=== PATIENT | female | born 1950 | race Caucasian/White ===

== ENCOUNTER 2017-03-17 11:00 | Emergency (ER) | payer OTHER ==
--- NOTE | 2017-03-17 11:04 | PDOC ---
Attending Attestation - Resident Resident Name: Shi Ann - ED Attending Attestation I have performed the following: I have examined & evaluated the patient, The case was reviewed & discussed with the resident, I agree w/resident's findings & plan - HPI HPI: 03/17/17 11:42 67 y/o female with hx of back issues in the past, presents to the ER with increasing back pain on the right lower back radiating down the right leg. Denies weakness or numbness. Went to the Urgent Care on Tuesday and given Flexeril and Naproxen, but this has not worked. No fever or chills. No recent fall or trauma, or lifting. Denies abdominal pain or recent procedures or incontinence. Patient states that the lower back hurts more with twisting. Pt states a UZA was done in the urgent care, but no x-ray. 03/17/17 11:48 - Physicial Exam PE: 03/17/17 11:44 VS stable HEENT uremarkable Heart: RRR w/o murmur Lungs CTA b/l, no wheezes, rhonchi or rales Abdomen: soft non tender +BS, no pulsatile mass noted Back: tenderness to right lower paravertebral muscles into the periformis area on palpation, no spinous process tenderness, decreased ROM EXT : neg C/C/E Neuro: strength 5+/5 b/l in LE, no focal deficits noted, neg SLR test b/l Discussed and agree with Resident Ann diagnosis Will give Valium and Percocet with x-ray 03/17/17 13:59 Pt is feeling better. Decadron 10 mg IV and Toradol 30 mg IV given Will increase Flexeril to 10 mg 3x/day as needed, Naproxen and Medrol dose pack Follow up with Orthopedics If worsen return to ER X-ray spine, lumbar : no fracture seen Patient and family in agreement with plan Risks and benefits explained to pt In agreement with Dr. Ann, resident - Medical Decision Making 03/17/17 14:01 A; Sciatica/lumbar strain right side P: Naproxen, Flexeril and Medrol dose pack Follow up with Orthopedics If no better return to ER No neurological deficits no sign of epidural abscess seen, vitals stable
[2017-03-17 11:05] VITALS: TEMP 98.4; BMI 27.1
[2017-03-17 11:09] VITALS: BP 122/74; PULSE 81
[2017-03-17] MEDS ORDERED: diazePAM 2 MG TABLET PO ONE (11:31)
--- NOTE | 2017-03-17 11:41 | PDOC ---
History of Present Illness - General Chief Complaint: Pain, Acute Stated Complaint: LOW BACK PAIN Time Seen by Provider: 03/17/17 11:04 History Source: Patient Exam Limitations: No Limitations - History of Present Illness Initial Comments: This is a 67 yo female with h/o sciatica (25 years ago), osteopenia (as of DEXA scan 3 years ago), total hysterectomy, appendectomy, and cholecystectomy who was driven here by her daughter for right lower back pain for the past 8 days. The pain began the night after having gone up and down stairs much more than she normally does, and it has fluctuated up to 10/10 since that time. It is dull , located in the right lower back and gluteal region, radiates down the front of the right thigh, is worsened by any movement or walking or bending forward, and is associated with left toe tingling. She was seen at Urgent Care 4 days ago and had a UA which was normal, and was prescribed Flexeril and naproxen which has been generally helping with her pain. It worsened this morning, however, and she called the advice RN who told her to come to the ED on an empty stomach and to not take her morning Flexeril/naproxen in case we wanted to administer a different medication. She denies any recent fever, chills, night sweats, change in weight or appetite, chest pain, shortness of breath, nausea, vomiting, diarrhea, constipation, abdominal pain, vaginal bleeding or discharge, pain on urination, blood in the urine, urinary or bowel incontinence or retention, dizziness/lightheadedness, difficulty balancing, numbness, focal weakness, headache, vision changes, midline back pain, or other symptoms. She denies h/o cancer or drug use. Past History - Travel Traveled outside of the country in the last 30 days: No - Past Medical History Allergies/Adverse Reactions: Allergies Allergy/AdvReac Type Severity Reaction Status Date / Time iodine Allergy Mild Verified 03/17/17 11:02 Home Medications: Ambulatory Orders Cyclobenzaprine HCl [Flexeril -] 5 mg PO TID PRN #20 tablet 03/17/17 Methylprednisolone [Medrol Dose Shilo] 4 mg PO ASDIR #21 tablet 03/17/17 GI Disorders: Yes (IBS,redundant colon hemorrhoids,h pylori) Hypercholesterolemia: Yes Comment:: osteopenia - Surgical History Abdominal Surgery: Yes Appendectomy: Yes (1981) Cholecystectomy: Yes (1997) Orthopedic Surgery: (S/p fracture left ankle 11/14) - Psycho/Social/Smoking Cessation Hx Anxiety: No Suicidal Ideation: No Smoking Status: No Smoking History: Never smoked Have you smoked in the past 12 months: No Number of Cigarettes Smoked Daily: 0 Hx Alcohol Use: No Drug/Substance Use Hx: No Substance Use Type: None Hx Substance Use Treatment: No Review of Systems - Review of Systems Able to Perform ROS?: Yes Constitutional: Yes: Weight Stable, Other (no night sweats). No: Chills, Fever , Loss of Appetite, Unexplained wgt Loss HEENTM: No: Recent change in vision, Nose Congestion, Throat Pain Respiratory: No: Cough, Shortness of Breath Cardiac (ROS): No: Chest Pain, Lightheadedness, Palpitations ABD/GI: Yes: Other (no abdominal pain, no bowel incontinence). No: Constipated , Diarrhea, Nausea, Vomiting : Yes: Other (no urinary retention). No: Burning, Dysuria, Discharge, Frequency, Hematuria, Incontinence Musculoskeletal: Yes: Back Pain (right low back). No: Neck Pain Integumentary: No: Bruising, Rash Neurological: Yes: Tingling (only in right toes). No: Headache, Numbness, Weakness, Unsteady Gait, Ataxia, Dizziness Endocrine: No: Unexplained Weight Gain, Unexplained Weight Loss *Physical Exam - Vital Signs Last Vital Signs Temp Pulse Resp BP Pulse Ox 98.4 F 81 17 122/74 100 03/17/17 11:01 03/17/17 11:01 03/17/17 11:01 03/17/17 11:01 03/17/17 11:01 - Physical Exam General Appearance: Yes: Nourished, Appropriately Dressed, Moderate Distress, Other (obviously uncomfortable but nontoxic-appearing, standing up straight for duration of interview and holding right lower back with right hand, ) HEENT: positive: EOMI, JARED, Normal Voice, Hearing Grossly Normal. negative: Scleral Icterus (R), Scleral Icterus (L), Nasal Congestion Neck: positive: Trachea midline, Supple. negative: Tender, Rigid Respiratory/Chest: positive: Lungs Clear, Normal Breath Sounds. negative: Respiratory Distress, Crackles, Rhonchi, Stridor, Wheezing Cardiovascular: positive: Regular Rhythm, Regular Rate. negative: Edema, Murmur Vascular Pulses: Dorsalis-Pedis (R): 2+, Doralis-Pedis (L): 2+ Gastrointestinal/Abdominal: positive: Normal Bowel Sounds, Soft. negative: Tender, Organomegaly, Pulsatile Mass, Guarding Musculoskeletal: positive: Normal Inspection, Other (no midline stepoffs, no back lesions or deformities). negative: CVA Tenderness, Vertebral Tenderness Extremity: positive: Normal Capillary Refill, Normal Inspection, Normal Range of Motion. negative: Tender, Cyanosis Integumentary: positive: Normal Color, Dry, Warm. 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 negative: EOM Palsy, Facial Droop, Sensory Deficit, Confused, Disoriented Deep Tendon Reflexes: Ankle (L): 2+, Ankle (R): 2+, Knee (L): 2+, Knee (R): 2+ ED Treatment Course - RADIOLOGY Radiology Studies Ordered: Category Date Time Status SPINE-LUMBAR ONLY [RAD] Stat Radiology 03/17/17 11:31 Ordered Radiograph Interpretation: L-spine x-ray without e/o acute fracture or bony deformity Medical Decision Making - Medical Decision Making 67 yo female with h/o sciatica (25 years ago) and osteopenia p/w right low back pain radiating down right thigh. Went up and down stairs prior to onset, no trauma, seen at and Rx Flexeril and naproxen with relief, worse today. No red flag symptoms for back pain, no neurological symptoms. DDX includes sciatica/piriformis syndrome, herniated lumbar disc, compression fracture, UTI/pyelo, muscle strain/sprain/spasm. Ordered are UA w/ cx, L-spine x-ray, pain control with 5 mg Valium and #1 Percocet PO. 03/17/17 13:03 Pt with incomplete relief of pain with Valium and Percocet. Ordered are Toradol 30 mg and Decadron 10 mg. L-spine x-ray without e/o bony abnormality. UA with trace blood and leukocytes but no other e/o UTI or other pathology. 03/17/17 14:50 Patient reports much improved pain after Toradol and Decadron. Her daughter helps make an orthopedics appointment for her for 03/24/17. The patient has 28 Flexeril left in her prescription and she has been taking only 1 every 12 hours. She is instructed to use #2 Flexeril every 8 hours instead. She has enough Flexeril for 14 doses or about 5 days. She does feel comfortable with discharge home with Rx for #20 more Flexeril and Medrol Dose Shilo. She is also instructed to continue taking naproxen as prescribed. She and her daughter are counseled regarding prescription plan and return precautions. She will follow up with her orthopedist or neurologist (requests contact info for Neuro). Or she will return to ED with any further emergency concerns. *DC/Admit/Observation/Transfer Diagnosis at time of Disposition: Back pain Qualifiers: Back pain location: low back pain Chronicity: acute Back pain laterality: right Sciatica presence: with sciatica Sciatica laterality: sciatica of right side Qualified Code(s): M54.41 - Lumbago with sciatica, right side - Discharge Dispostion Disposition: HOME Condition at time of disposition: Stable Admit: No - Prescriptions Prescriptions: Cyclobenzaprine HCl [Flexeril -] 5 mg PO TID PRN #20 tablet PRN Reason: Pain Methylprednisolone [Medrol Dose Shilo] 4 mg PO ASDIR #21 tablet - Referrals Referrals: Lexx Gibson MD [Primary Care Provider] - - Patient Instructions Printed Discharge Instructions: DI for Back Pain With Sciatica Additional Instructions: You were seen today for back pain with sciatica symptoms. We did a lumbar spine x-ray which was normal, and also did a urine analysis which was not concerning to us. We gave you Valium (a muscle relaxer) and Percocet to control the pain, which initially did not provide enough relief. We gave you a dose of decadron ( a steroid) and also some Toradol (an NSAID) which provided relief. Please follow up with your orthopedist on 03/24/17 as scheduled. We prescribed you 20 more Flexeril (cyclobenzaprine) pills to hold you over until your orthopedics appointment. We also prescribed you a Medrol Dose Shilo (which are steroid pills) . Please take 10 mg (two of the 5 mg pills) of Flexeril every 8 hours as needed for pain and muscle spasms. Please also take the Medrol Dose Shilo pills as prescribed on the prescription instructions. Please also continue taking the Naproxen once every 12 hours as you have been doing. Try not to stay in bed all day - don't overdo it, but try to keep active and do some very light stretching to keep your back muscles strong. Follow up with orthopedics and your primary doctor, or return to the emergency department for any fever, worsened back pain , neck pain, headache, vision changes, new numbness or tingling, new one-sided weakness, or bowel/bladder incontinence or retention. - Attestations Physician Attestion: 03/17/17 13:02 I, Dr. Shi Ann, attest that this document has been prepared under my direction and personally reviewed by me in its entirety. I further attest, that it accurately reflects all work, treatment, procedures and medical decision -making performed by me.
[2017-03-17] MEDS ORDERED: diazePAM 5 MG TABLET PO ONE (11:42)
[2017-03-17] MEDS ORDERED: diazePAM 5 MG TABLET ONE (11:44)
[2017-03-17] MEDS ORDERED: KETOROLAC TROMETHAMINE 30 MG/1 ML VIAL IVPUSH ONE (12:48)
[2017-03-17] MEDS ORDERED: DEXAMETHASONE SOD PHOSPHATE 10 MG/1 ML VIAL IVPUSH ONE (12:49)
[2017-03-17] MEDS ORDERED: KETOROLAC TROMETHAMINE 30 MG/1 ML VIAL ONE (12:50)
[2017-03-17] MEDS ORDERED: DEXAMETHASONE SOD PHOSPHATE 10 MG/1 ML VIAL ONE (12:50)
[2017-03-17 13:25] LABS: URINE APPEARANCE Clear; URINE BILIRUBIN Negative (NEGATIVE); URINE GLUCOSE (UA) Negative (NEGATIVE); URINE KETONE Negative (NEGATIVE); URINE NITRITE Negative (NEGATIVE); URINE PROTEIN Negative (NEGATIVE); URINE UROBILINOGEN 0.2 (0.2-1.0)
[2017-03-17 13:30] LABS: URINE BLOOD Trace-intact (NEGATIVE); URINE COLOR YELLOW; URINE LEUK ESTERASE TRACE (NEGATIVE)
[2017-03-17 21:10] LABS: URINE BACTERIA FEW /hpf (NEGATIVE)
== END 2017-03-17 14:56 | disposition home or self-care (01) ==
LOC: FER 11:00
PROC: 3E033GC Introduction of Other Therapeutic Substance into Peripheral Vein, Percutaneous Approach (ICD-10-PCS; principal; 2017-03-17)
PROC: 3E0333Z Introduction of Anti-inflammatory into Peripheral Vein, Percutaneous Approach (ICD-10-PCS; 2017-03-17)
DX: M54.41 Lumbago with sciatica, right side (principal); M85.80 Other specified disorders of bone density and structure, unspecified site; E78.00 Pure hypercholesterolemia, unspecified; K58.9 Irritable bowel syndrome, unspecified
CPT/HCPCS: 72100-TC; 81003; 81015; 87086; 99282-25